=== PATIENT | male | born 1975 | race African-American/Black ===

== ENCOUNTER 2018-01-05 13:06 | Emergency (ER) | payer SELFPAY ==
--- NOTE | 2018-01-05 14:04 | ED Physician Chart ---
ED Chief Complaint/HPI - Patient Information Date Seen:: 01/05/18 Time Seen:: 13:59 Chief Complaint:: LOW BACK PAIN History of Present Illness:: 42 YR OLD MALE WITH ACUTE ONSET LBP LT SIDE WITH RADIATION POST LEG TO DOWN BELOW THE KNEE NO BOWEL BLADDER PROBLEMS HX OF BACK PROBLEMS WITH SEVERE MUSCLE SPASMS Allergies:: Allergies Allergy/AdvReac Type Severity Reaction Status Date / Time No Known Allergies Allergy Verified 01/05/18 13:30 Vitals:: Vital Signs - 8 hr 01/05/18 13:30 Temp 97.8 F HR 69 RR 16 BP 110/67 O2 Sat % 97 ED Review of Systems - Review of Systems General/Constitutional: No fever, No chills Skin: No skin lesions Head: No headache Eyes: No loss of vision ENT: No earache Neck: No neck pain Cardio Vascular: No chest pain Pulmonary: No SOB GI: No nausea, No vomiting G/U: No dysuria Musculoskeletal: Back pain Endocrine: No polyuria Psychiatric: No prior psych history Hematopoietic: No bruising Allergic/Immuno: No urticaria Neurological: No syncope ED Past Medical History - Past Medical History Past Medical History: No significant medical hx Family Medical History - Family Member Mother History Unknown: Yes ED Physical Exam - Physical Examination General/Constitutional: Well-developed, well-nourished Head: Atraumatic Eyes: Lids, conjuctiva normal Skin: Nl inspection ENMT: External ears, nose nl Neck: Nontender Respiratory: Nl effort/Exclusion Cardio Vascular: No murmur, gallop, rubs GI: No tenderness/rebounding/guarding : No CVA tenderness Extremities: No tenderness or effusion, Full ROM (TENDERNESS LOWER PAIN LT BUTTOCK) Neuro/Psych: Alert/oriented ED Septic Shock - . Is Septic Shock (SBP<90, OR Lactate>4 mmol\L) present?: No - <6hrs of presentation: Vital Signs: Vital Signs - 8 hr 01/05/18 13:30 Temp 97.8 F HR 69 RR 16 BP 110/67 O2 Sat % 97 ED Reassessment (Disposition) - Diagnosis Diagnosis:: LOW BACK PAIN - Aftercare/Follow up Instructions Aftercare/Follow-Up Instructions:: Counseled pt regarding lab results/diagnosis & need follow up - Patient Disposition Discharge/Transfer:: Home Condition at Disposition:: Stable
[2018-01-05 14:14] LABS: % BASOPHILS 1.6 % (0.0-2.0); % EOSINOPHILS 2.2 % (0.0-5.0); % LYMPHOCYTES 25.1 % (20.0-50.0); % MONOCYTES 6.1 % (2.0-10.0); BASOPHILE ABSOLUTE 0.1 Th/cumm (0-0.2); EOSINOPHILE ABSOLUTE 0.2 Th/cmm (0.1-0.4); HEMATOCRIT 43.4 % (41.0-60); HEMOGLOBIN 14.3 gm/dL (12-16); LYMPHOCYTE ABSOLUTE 2.2 Th/cmm (1.5-3.0); MEAN CELL VOLUME 91.8 fl (80-99); MEAN CORPUSCULAR HEMOGLOBIN 30.2 pg (26.0-30.0); MEAN CORPUSCULAR HGB CONC 32.9 pg (28.0-36.0); MEAN PLATELET VOLUME 8.5 fl; MONOCYTE ABSOLUTE 0.5 Th/cmm (0.3-1.0); NEUTROPHILE ABSOLUTE 5.6 Th/cmm (1.8-8.0); PLATELET COUNT 218 Th/cmm (150-400); RED BLOOD COUNT 4.72 Mil/cmm (4.30-5.70); RED CELL DISTRIBUTION WIDTH 13.1 % (11.5-20.0); WHITE BLOOD COUNT 8.6 Th/cmm (4.8-10.8)
[2018-01-05 14:17] LABS: URINE SOURCE CLEAN C
[2018-01-05 14:20] LABS: URINE BILIRUBIN NEGATIVE (NEGATIVE); URINE BLOOD NEGATIVE (NEGATIVE); URINE GLUCOSE (UA) NEGATIVE (NEGATIVE); URINE KETONE NEGATIVE (NEGATIVE); URINE LEUKOCYTE ESTERASE NEGATIVE (NEGATIVE); URINE NITRATE NEGATIVE (NEGATIVE); URINE PROTEIN NEGATIVE (NEGATIVE); URINE UROBILINOGEN 0.2 E.U./dL (0.2 - 1.0)
[2018-01-05 14:22] LABS: URINE CLARITY CLEAR (CLEAR); URINE COLOR YELLOW; URINE MICROSCOPIC INDICATED? YES
[2018-01-05 14:30] LABS: ALB/GLOB RATIO 1.3 (1.0-1.8); ALBUMIN 4.1 gm/dL (4.2-5.5); ALKALINE PHOSPHATASE 83 U/L (34-104); ANION GAP 13.7 (7.0-16.0); BILIRUBIN,TOTAL 0.3 mg/dL (0.3-1.0); BUN - UREA NITROGEN 11 mg/dL (7-25); CALCIUM SERUM 9.3 mg/dL (8.6-10.3); CARBON DIOXIDE 23.3 mEq/L (21.0-31.0); CHLORIDE 108 mEq/L (98-107); GFR AFRICAN-AMERICAN > 60.0 ml/min (>90); GFR NON AFRICAN-AMERICAN > 60.0 ml/min; GLUCOSE 98 mg/dL (70-105); SGOT 26 U/L (13-39); SGPT/ALT 25 U/L (7-52); SODIUM SERUM 141 mEq/L (136-145); TOTAL PROTEIN,SERUM 7.3 gm/dL (6.0-8.3)
[2018-01-05 14:41] LABS: URINE BACTERIA OCCASIONAL /hpf (NONE SEEN); URINE EPITHELIAL CELLS OCCASIONAL /lpf (FEW); URINE RBC NONE SEEN /hpf (0-5); URINE WBC 0-2 /hpf (0-5)
--- NOTE | 2018-01-05 15:13 | Diagnostic Imaging Report ---
CT lumbar spine without IV contrast HISTORY: Back pain COMPARISON: None Technique: Axial images were obtained from the lower thoracic spine to the upper sacrum without IV contrast. Reconstructions were made. total DLP: [id number], [id number] Findings: Images of the lumbar spine obtained without contrast demonstrate no evidence of fracture or subluxation. Mild degenerative changes are seen with multilevel posterior disc bulges right is largest at L4/L5 measuring 4 to 5 mm. There is also mild disc space loss of height at this level. Mild multilevel bilateral neural foraminal narrowing is seen at L3/L4, L4/L5, and L5/S1. There is mild spinal scoliosis. Facet degenerative changes are seen greatest at the lower lumbar spine. Degenerative changes of SI joints are noted. Nonunited bilateral transverse processes of L1 are noted. The visualized retroperitoneum is grossly unremarkable. IMPRESSION: No evidence of acute fracture or subluxation. Moderate degenerative changes with posterior disc bulging the largest at L4/L5 measuring 4 to 5 mm. If indicated MRI follow-up may be obtained for further assessment. Probable spinal scoliosis.
== END 2018-01-05 16:05 | disposition home or self-care (01) ==
LOC: ER 13:06
DX: M54.5 Low back pain (principal)
CPT/HCPCS: 99285; 96372 ×2; 72131; 36415; 85025; 81001; 80053; 87040 ×2; J1885; J2930